=== PATIENT | female | born 1990 | race Two or more races ===

== ENCOUNTER → 2023-09-04 11:26 | Outpatient (CLI) | payer OTHER | END | disposition home or self-care (01) | LOC: PRENATAL 11:26 | PROVIDERS: ATTEND Obstetrics & Gynecology Maternal & Fetal Medicine | DX: O36.80X0 Pregnancy with inconclusive fetal viability, not applicable or unspecified (principal); O99.210 Obesity complicating pregnancy, unspecified trimester; Z36.82 Encounter for antenatal screening for nuchal translucency; Z3A.11 11 weeks gestation of pregnancy ==

== ENCOUNTER 2023-10-04 08:01 | Outpatient (CLI) | payer OTHER | END 2023-10-04 08:02 | disposition home or self-care (01) | LOC: PRENATAL 08:01 | PROVIDERS: ATTEND Obstetrics & Gynecology Maternal & Fetal Medicine | DX: O28.5 Abnormal chromosomal and genetic finding on antenatal screening of mother (principal); Z3A.16 16 weeks gestation of pregnancy ==

== ENCOUNTER 2024-01-02 14:28 | Outpatient (CLI) | payer OTHER | END 2024-01-02 14:29 | disposition home or self-care (01) | LOC: PRENATAL 14:28 | PROVIDERS: ATTEND Obstetrics & Gynecology Maternal & Fetal Medicine | DX: O26.843 Uterine size-date discrepancy, third trimester (principal); O99.213 Obesity complicating pregnancy, third trimester; O16.3 Unspecified maternal hypertension, third trimester; Z3A.28 28 weeks gestation of pregnancy ==

== ENCOUNTER 2024-01-24 08:45 | Outpatient (CLI) | payer OTHER | END 2024-01-24 08:47 | disposition home or self-care (01) | LOC: PRENATAL 08:45 | PROVIDERS: ATTEND Obstetrics & Gynecology Maternal & Fetal Medicine | DX: O26.843 Uterine size-date discrepancy, third trimester (principal); O24.419 Gestational diabetes mellitus in pregnancy, unspecified control; O36.8130 Decreased fetal movements, third trimester, not applicable or unspecified; O99.213 Obesity complicating pregnancy, third trimester; O16.3 Unspecified maternal hypertension, third trimester; Z3A.32 32 weeks gestation of pregnancy ==

== ENCOUNTER → 2024-02-21 10:01 | Outpatient (CLI) | payer OTHER ==
[~2024-02-21 10:01] MED LIST: CHILDREN'S ASPI81 MG PO; NIFEDIPINE20 MG PO; PRENATAL CAPLE1 EAC1 PO
== END | disposition home or self-care (01) ==
LOC: PRENATAL 10:01
PROVIDERS: ATTEND Obstetrics & Gynecology Maternal & Fetal Medicine
DX: O26.849 Uterine size-date discrepancy, unspecified trimester (principal); O36.8199 Decreased fetal movements, unspecified trimester, other fetus; O99.210 Obesity complicating pregnancy, unspecified trimester; O14.90 Unspecified pre-eclampsia, unspecified trimester; O10.019 Pre-existing essential hypertension complicating pregnancy, unspecified trimester; Z3A.34 34 weeks gestation of pregnancy

== ENCOUNTER 2024-02-21 14:19 | Inpatient (IN) | payer OTHER ==
[~2024-02-21] VITALS: Ht 157.5 cm; Wt 2.7 kg
[2024-02-21 13:50] VITALS: BP 138/92
[2024-02-21] MEDS ORDERED: NIFEDIPINE20 MG PO (14:35)
[2024-02-21] MEDS ORDERED: CHILDREN'S ASPI81 MG PO (14:36)
[2024-02-21] MEDS ORDERED: PRENATAL CAPLE1 EAC1 PO (14:36)
[2024-02-21] MEDS ORDERED: BETAMETHASONE ACETATE,SOD PHOS 30 MG/5 ML ML IM STA (14:40)
[2024-02-21] MEDS ORDERED: RINGERS SOLUTION,LACTATED 1,000 ML IV SCH (14:45)
[2024-02-21] MEDS ORDERED: BETAMETHASONE ACETATE,SOD PHOS 30 MG/5 ML ML ONE (14:49)
[2024-02-21 15:38] LABS: HEMATOCRIT 32.1 % (36.0-45.00); HEMOGLOBIN 11.1 g/dL (12.0-15.00); MEAN CELL VOLUME 79.2 fL (80.00-100.00); MEAN CORPUSCULAR HEMOGLOBIN 27.6 pg (27.00-32.0); MEAN CORPUSCULAR HGB CONC 34.8 g/dl (32.0-36.0); PH,URINE 6.5 (5.0-8.0); PLATELET COUNT 494 K/uL (150-450); RED BLOOD COUNT 4.05 M/uL (4.00-6.00); RED CELL DISTRIBUTION WIDTH 12.6 % (11.5-14.5); URINE APPEARANCE Clear; URINE BILIRRUBIN Negative (NEGATIVE); URINE BLOOD Negative; URINE COLOR Yellow; URINE GLUCOSE Negative (NEGATIVE); URINE KETONE Negative (NEGATIVE); URINE LEUKOCYTE Trace; URINE NITRATE Negative; URINE PROTEIN Negative (NEGATIVE); URINE UROBILINOGEN 0.2 E.U./dl
[2024-02-21 15:41] VITALS: BP 149/88
[2024-02-21 15:41] LABS: URINE BACTERIA 6918.3 uL (0.0-1933); URINE WBC 54.8 uL (0.0-23.2)
[2024-02-21 15:58] LABS: URINE RBC 1.5 uL (0.0-20.8)
[2024-02-21 16:04] LABS: INR < 0.93; PARTIAL THROMBOPLASTIN TIME 25.6 SECONDS (22.0-34.0); PROTHROMBIN TIME 10.2 SECONDS (9.0-11.5)
[2024-02-21 16:11] LABS: CREATININE SERUM 0.75 mg/dL (0.55-1.02); GFR 88.45
[2024-02-21 16:12] LABS: ALBUMIN 2.5 gm/dL (3.4-5.0); BILIRUBIN TOTAL 0.17 mg/dL (0.3-1.2); CALCIUM 9.5 mg/dL (8.5-10.1); POTASSIUM 4.11 mEq/L (3.5-5.1); TOTAL PROTEIN 7.5 gm/dL (6.4-8.2)
[2024-02-21 19:33] VITALS: BP 146/79; O2SAT 100
[2024-02-21] MEDS ORDERED: NIFEDIPINE 60 MG TAB.SA.OSM PO SCH (21:00)
[2024-02-21 23:24] VITALS: BP 146/80
[2024-02-22] VITALS (7 sets, daily range): BP systolic 118–140; BP diastolic 74–84; O2SAT 99
[2024-02-22] MEDS ORDERED: INSULIN LISPRO 1,000 UNIT/10 ML UNITS SUBCUTANEO STA (08:56)
[2024-02-22] MEDS ORDERED: ASPIRIN 81 MG TABLET.EC PO SCH (12:00)
[2024-02-22] MEDS ORDERED: INSULIN LISPRO 1,000 UNIT/10 ML UNITS SUBCUTANEO PRN (13:30)
[2024-02-22] MEDS ORDERED: BETAMETHASONE ACETATE,SOD PHOS 30 MG/5 ML ML IM SCH (14:45)
[2024-02-23 03:41] VITALS: BP 129/78
[2024-02-23 07:30] VITALS: BP 126/74
[2024-02-23 11:21] VITALS: BP 134/75
[2024-02-23 16:00] VITALS: BP 135/80
[2024-02-23 20:00] VITALS: BP 140/5; BP 140/85
[2024-02-24] VITALS: BP 145/87
[2024-02-24 06:00] VITALS: BP 128/74
[2024-02-24 08:10] VITALS: BP 135/85
[2024-02-24 16:00] VITALS: BP 133/83
[2024-02-24 20:00] VITALS: BP 142/84
[2024-02-25] VITALS: BP 146/82
[2024-02-25 06:00] VITALS: BP 142/90
[2024-02-25 09:03] VITALS: BP 137/82
[2024-02-25 13:15] VITALS: BP 116/73
[2024-02-25 16:23] VITALS: BP 130/80
[2024-02-25 21:17] VITALS: BP 140/85
[2024-02-26] VITALS (7 sets, daily range): BP systolic 110–150; BP diastolic 70–90
[2024-02-27 00:08] VITALS: BP 140/78
[2024-02-27 06:09] VITALS: BP 123/78
[2024-02-27 08:32] VITALS: BP 135/84
[2024-02-27 12:47] VITALS: BP 131/87
[2024-02-27 16:00] VITALS: BP 150/80
[2024-02-27 20:00] VITALS: BP 140/70; O2SAT 99
[2024-02-28 00:52] VITALS: BP 150/85
[2024-02-28 06:21] VITALS: BP 121/74
[2024-02-28 08:00] VITALS: BP 150/89
[2024-02-28] MEDS ORDERED: PROMETHAZINE HCL 50 MG/ML AMPUL IM PRN (14:00)
[2024-02-28] MEDS ORDERED: MEPERIDINE HCL/PF 50 MG/ML VIAL IM PRN (14:00)
[2024-02-28] MEDS ORDERED: MORPHINE SULFATE 4 MG/ML VIAL IV ONE (16:25)
[2024-02-28] MEDS ORDERED: NIFEDIPINE 60 MG TAB.SA.OSM PO SCH (17:00)
[2024-02-28 17:42] VITALS: BP 171/104
[2024-02-28 17:45] VITALS: BP 160/90
[2024-02-28 20:00] VITALS: BP 160/90
[2024-02-28 20:36] LABS: HEMATOCRIT 28.4 % (36.0-45.00); HEMOGLOBIN 9.6 g/dL (12.0-15.00); MEAN CELL VOLUME 79.4 fL (80.00-100.00); MEAN CORPUSCULAR HEMOGLOBIN 26.9 pg (27.00-32.0); MEAN CORPUSCULAR HGB CONC 33.9 g/dl (32.0-36.0); PLATELET COUNT 364 K/uL (150-450); RED BLOOD COUNT 3.58 M/uL (4.00-6.00); RED CELL DISTRIBUTION WIDTH 12.8 % (11.5-14.5)
[2024-02-29] VITALS: BP 157/83
[2024-02-29] MEDS ORDERED: OxyCODONE HCL/APAP UD (PERCOCET) PO PRN (08:00)
[2024-02-29] MEDS ORDERED: PNV,CALCIUM 72/IRON/FOLIC ACID 1 TAB TABLET PO SCH (09:00)
[2024-02-29] MEDS ORDERED: DOCUSATE SODIUM 100MG CAP PO SCH (09:00)
[2024-02-29] MEDS ORDERED: SIMETHICONE 125 MG CAPSULE PO SCH (09:00)
[2024-02-29 09:19] VITALS: BP 165/85
[2024-02-29 12:50] VITALS: BP 144/88
[2024-02-29 17:13] VITALS: BP 150/85
[2024-02-29 21:27] VITALS: BP 147/92
[2024-03-01 02:44] VITALS: BP 138/85
[2024-03-01 09:00] VITALS: BP 137/83
[2024-03-01 16:00] VITALS: BP 138/88
[2024-03-02 02:12] VITALS: BP 140/88
[2024-03-02 10:04] VITALS: BP 132/80
== END 2024-03-02 14:53 | disposition home or self-care (01) | DRG 788 ==
LOC: LDR 14:19 → OB/GYN 14:19 → LDR 02-22 09:53 → OB/GYN 02-23 12:15
PROVIDERS: ADMIT Obstetrics & Gynecology; ATTEND Obstetrics & Gynecology
PROC: 4A1HXCZ Monitoring of Products of Conception, Cardiac Rate, External Approach (ICD-10-PCS; 2024-02-21)
PROC: 10D00Z1 Extraction of Products of Conception, Low, Open Approach (ICD-10-PCS; principal; 2024-02-28 11:00)
DX: O36.5930 Maternal care for other known or suspected poor fetal growth, third trimester, not applicable or unspecified (principal); O11.4 Pre-existing hypertension with pre-eclampsia, complicating childbirth; O24.420 Gestational diabetes mellitus in childbirth, diet controlled; Z3A.37 37 weeks gestation of pregnancy; Z3A.36 36 weeks gestation of pregnancy; Z37.0 Single live birth; Z20.822 Contact with and (suspected) exposure to COVID-19